=== PATIENT | female | born 1955 | race Caucasian/White ===

== ENCOUNTER 2019-05-14 09:56 | Outpatient (CLI) | payer OTHER ==
[2019-05-14 14:56] LABS: #Eosinphils 0.1 thou/uL (0.0-0.7); #Lymphocytes 1.7 thou/uL (1.20-3.40); #Monocytes 0.5 thou/uL (0.11-0.59); %Basophils 0.4 % (0.0-1.0); %Lymphocytes 32.3 % (21.0-51.0); %Monocytes 8.5 % (0.0-10.0); %Neutrophils 57.8 % (42.0-75.0); Mean Corpuscular HGB CONC 34.3 g/dL (32.0-36.0); Mean Corpuscular Hemoglobin 33.2 pg (27.0-31.0); Mean Platelet Volume 8.3 fL (7.4-10.4); Platelet Count 202 thou/uL (130-400); RBC Distribution Width 11.5 % (11.5-14.5); Red Blood Cell (RBC) Count 3.92 mill/uL (4.20-5.40); White Blood Cell (WBC) Count 5.3 thou/uL (4.8-10.8)
[2019-05-14 15:15] LABS: Anion Gap 12 mmol/L (10-20); BUN (Urea Nitrogen) 25 mg/dL (9.8-20.1); Calc. Creatinine Clearance 0 mL/min (70-130); Calcium 9.3 mg/dL (7.8-10.44); Carbon Dioxide 25 mmol/L (23-31); Chloride 104 mmol/L (98-107); Estimated GFR-MDRD 44; Glucose 104 mg/dL (80-115); Potassium 3.9 mmol/L (3.5-5.1); Sodium 137 mmol/L (136-145)
--- NOTE | 2019-05-15 19:58 | EKG ---
Test Reason : Blood Pressure : / mmHG Vent. Rate : 070 BPM Atrial Rate : 070 BPM P-R Int : 188 ms QRS Dur : 076 ms QT Int : 390 ms P-R-T Axes : 056 062 041 degrees QTc Int : 421 ms Normal sinus rhythm Possible Left atrial enlargement Cannot rule out Anterior infarct , age undetermined Abnormal ECG No previous ECGs available Confirmed by ARSH WILSON, DR. Hernandez ([id number]) on 05/15/2019 7:58:01 PM Referred By: ROBIN Confirmed By:DR. Mary CABAN MD
== END 2019-05-14 09:57 | disposition home or self-care (01) ==
LOC: LABBT 09:56
PROVIDERS: ATTEND Specialist
DX: Z01.818 Encounter for other preprocedural examination (principal); K40.90 Unilateral inguinal hernia, without obstruction or gangrene, not specified as recurrent
CPT/HCPCS: 80048; 85025; 93005; 93010

== ENCOUNTER 2019-05-15 05:50 | Day surgery (SDC) | payer OTHER ==
[2019-05-14 09:01] VITALS: BMI 26.4
--- NOTE | 2019-05-14 10:30 | HP ---
HISTORY OF PRESENT ILLNESS: Keturah Rodriguez, 64-year-old female, active [employer] participant, leaving for [place] tomorrow, has a left inguinal hernia. Plan is to repair that robotically, used mesh as an outpatient. She understands risks, benefits, and consents. PAST SURGICAL HISTORY: Hysterectomy; bilateral salpingo-oophorectomy; endometriosis in 1996; Pfannenstiel incision in 2014; right ankle surgery for bone shift in 2013; right inguinal hernia repair with mesh by Dr. Moran. SOCIAL HISTORY: Tobacco, none. Alcohol, none. PAST MEDICAL HISTORY: Noncontributory. REVIEW OF SYSTEMS: Ten-point noncontributory. MEDICATIONS: 1. Estradiol daily. 2. Biotin daily. 3. Glucosamine daily. 4. Calcium and vitamin D. 5. Magnesium. 6. Fish oil. 7. Metamucil daily. ALLERGIES: IODINE, CODEINE. REVIEW OF SYSTEMS: [employer]point noncontributory. FAMILY HISTORY: Noncontributory. PHYSICAL EXAMINATION: VITAL SIGNS: Blood pressure 123/77, heart rate 66, temperature 98.4 degrees, and weight [address] Alber Wong. GENERAL: The patient does wear glasses, corrective vision. HEAD, EYES, EARS, NOSE, AND THROAT: Unremarkable. LUNGS: Clear to auscultation. CARDIAC: Regular rate and rhythm without murmur or gallop. ABDOMEN: Soft and nontender. Right groin without hernia. Left inguinal hernia present on standing. Pfannenstiel incision suprapubic. EXTREMITIES: Unremarkable. No ankle edema. Palpable pulses. ASSESSMENT AND PLAN: Left inguinal hernia. We will plan robotic repair using mesh as an outpatient in the future. She understands risks and benefits. Questions answered. Job ID: [id number]
[2019-05-15] MEDS ORDERED: Ketorolac Tromethamine 30 MG/ML VIAL ONE (06:31)
[2019-05-15] MEDS ORDERED: Bupivacaine/Epinephrine 0.25% 30 ML VIAL ONE (06:33)
[2019-05-15] MEDS ORDERED: Fentanyl 100 MCG/2 ML VIAL ONE (06:35)
[2019-05-15] MEDS ORDERED: Famotidine/PF 20 mg/2ml Vial ONE (06:35)
[2019-05-15] MEDS ORDERED: Scopolamine 1.5 mg/72 hour Patch ONE (07:12)
[2019-05-15] MEDS ORDERED: Midazolam HCl 2 mg/2 ml Vial ONE (07:12)
--- NOTE | 2019-05-15 15:59 | OP ---
DATE OF PROCEDURE: 05/15/2019 PREOPERATIVE DIAGNOSIS: Left inguinal hernia. POSTOPERATIVE DIAGNOSIS: Left inguinal hernia. PROCEDURE PERFORMED: Robot laparoscopic 3D Bard large mesh repair of left inguinal hernia. ANESTHESIA: General, local 0.5% Marcaine with epinephrine, 30 mL total volume used. DESCRIPTION OF PROCEDURE: The patient was taken to the operating room, where under general anesthesia, Davis catheter was placed at the beginning of the procedure and removed at the end. Abdomen was prepared with ChloraPrep and draped in routine fashion. Local anesthetic was infiltrated in the skin and subcutaneous tissue about all port sites. Left paramedian supraumbilical incision made. Pneumoperitoneum to 15 mmHg was obtained with a Veress needle, replaced with an 11 port balloon. The laparoscope was inserted. Bilateral lateral mid abdominal incision was made and an 8 mm port was placed. Robot docked. The patient was placed in straight Trendelenburg and robotic inguinal hernia undertaken by creating a flap between the anterior and superior iliac spine on the left in the midline, dropping the peritoneal flap, dissecting the hernia sac, large, free from the retroperitoneal structures. The mesh was then placed over the defect and secured to Jorge ligament with interrupted sutures of 2-0 Vicryl and to the anterior abdominal wall, anteriorly to the left of the inferior epigastric vessels with 2-0 Vicryl suture. Once the mesh was probably seated and covered the retroperitoneum adequately, the peritoneal flap was closed with continuous suture of 3-0 V-Loc. Good hemostasis was noted. Good closure was appreciated. The patient tolerated the procedure well. Her pneumoperitoneum reduced. All instruments were removed. All skin incisions were approximated with subdermal 4-0 Monocryl and Dumont glue was applied. Job ID: [id number]
== END 2019-05-15 10:24 | disposition home or self-care (01) ==
LOC: SDC 05:50
PROVIDERS: ATTEND Specialist
PROC: 0YU64JZ Supplement Left Inguinal Region with Synthetic Substitute, Percutaneous Endoscopic Approach (ICD-10-PCS; principal; 2019-05-15)
DX: K40.90 Unilateral inguinal hernia, without obstruction or gangrene, not specified as recurrent (principal); Z79.899 Other long term (current) drug therapy; Z88.5 Allergy status to narcotic agent; Z91.013 Allergy to seafood; Z91.041 Radiographic dye allergy status
CPT/HCPCS: C1781; J0131; J0690; J1885; J2250; J3010; S0028

== ENCOUNTER 2021-05-24 07:57 | Outpatient (CLI) | payer MEDICARE | END 2021-05-24 07:58 | disposition home or self-care (01) | LOC: BICMAMMO 07:57 | PROVIDERS: ATTEND Internal Medicine | DX: Z12.31 Encounter for screening mammogram for malignant neoplasm of breast (principal); Z80.3 Family history of malignant neoplasm of breast | CPT/HCPCS: 77063; 77067 ==

== ENCOUNTER 2023-01-27 08:49 | Outpatient (CLI) | payer MEDICARE | END 2023-01-27 08:50 | disposition home or self-care (01) | LOC: BICMAMMO 08:49 | PROVIDERS: ATTEND Internal Medicine | DX: Z12.31 Encounter for screening mammogram for malignant neoplasm of breast (principal); Z13.820 Encounter for screening for osteoporosis; M85.89 Other specified disorders of bone density and structure, multiple sites; Z80.3 Family history of malignant neoplasm of breast | CPT/HCPCS: 77063; 77067; 77080 ==

== ENCOUNTER 2024-05-13 08:42 | Outpatient (CLI) | payer MEDICARE | END 2024-05-13 08:43 | disposition home or self-care (01) | LOC: BICMAMMO 08:42 | PROVIDERS: ATTEND Internal Medicine | DX: Z12.31 Encounter for screening mammogram for malignant neoplasm of breast (principal); Z13.820 Encounter for screening for osteoporosis; Z78.0 Asymptomatic menopausal state; M85.89 Other specified disorders of bone density and structure, multiple sites; Z80.3 Family history of malignant neoplasm of breast | CPT/HCPCS: 77063; 77067; 77080 ==